=== PATIENT | male | born 1945 | race Caucasian/White ===

== ENCOUNTER 2018-08-10 01:42 | Observation (INO) ==
[2018-08-10] MEDS ORDERED: Ipratropium/Albuterol Neb 3 ML IH ONE (02:10)
[2018-08-10] MEDS ORDERED: Ondansetron 4 MG/2 ML VIAL IVP ONE (02:10)
[2018-08-10] MEDS ORDERED: *HR* FentaNYL (PF) 100 MCG/2 ML VIAL IVP ONE (02:10)
[2018-08-10 02:21] LABS: Basophils # 0.1 K/mcL (0.0-0.2); Basophils % 0.3 %; Eosinophils # 0.2 K/mcL (0.0-0.6); Eosinophils % 1.1 %; Hemoglobin 14.3 g/dL (12.9-16.9); Immature Granulocytes % 1.1 % (0-4); Lymphocytes # 1.7 K/mcL (0.6-4.6); Lymphocytes % 8.3 %; Mean Corpuscular HGB Conc 33.3 g/dL (31.6-35.5); Mean Corpuscular Hemoglobin 31.8 pg (28.0-33.3); Mean Corpuscular Volume 95.6 fL (83.0-100.0); Mean Platelet Volume 9.1 fL (9.4-12.4); Monocytes # 1.2 K/mcL (0.0-1.3); Monocytes % 5.5 %; Neutrophils # 17.5 K/mcL (1.6-8.9); Platelet Count 391 K/mcL (140-400); Red Cell Distribution Width 12.6 % (11.5-14.5); Segmented Neutrophils % 83.7 %
[2018-08-10 02:33] LABS: Prothrombin Time 11.4 Seconds (9.4-12.1)
[2018-08-10 02:48] LABS: Alanine Aminotransferase 18 Units/L (7-52); Albumin 4.2 g/dL (3.5-5.7); Albumin/Globulin Ratio 1.6 (1.1-2.2); Alkaline Phosphatase 73 Units/L (34-104); Aspartate Amino Transferase 28 Units/L (13-39); BUN/Creatinine Ratio 12 (6-26); Bilirubin,Total 0.4 mg/dL (0.3-1.0); Blood Urea Nitrogen 12 mg/dL (8-23); Calcium 8.6 mg/dL (8.6-10.3); Carbon Dioxide 23 mEq/L (23-29); Chloride 96 mEq/L (98-107); Globulin 2.7 g/dL (2.4-3.5); Glucose 138 mg/dL (70-105); Lipase 42 Units/L (11-82); Osmolality,Calculated 272 (280-300); Potassium 3.5 mEq/L (3.5-5.1); Sodium 130 mEq/L (136-145); Total Protein 6.9 g/dL (6.4-8.9); eGFR For Non-African Americans > 60 (> 60)
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
[2018-08-10] MEDS ORDERED: Isovue-370 500 ML INFUS..BTL IVP ONE (03:04)
[2018-08-10] MEDS: Isovue-370 500 ML INFUS..BTL IV ONE (03:05)
[2018-08-10 03:42] LABS: Bilirubin,Urine Negative (Negative); Blood,Urine Negative (Negative); Clarity,Urine Clear (Clear); Color,Urine Yellow (Yellow); Glucose,Urine (UA) Normal (Normal); Ketones,Urine Negative (Negative); Leukocyte Esterase,Urine Negative (Negative); Nitrite,Urine Negative (Negative); PH,Urine 6.5 pH Units (5.0-8.0); Protein,Urine 30 mg/dL (Neg-Trace); Specific Gravity,Urine 1.024 (1.010-1.025); Urobilinogen,Urine Normal (Normal)
[2018-08-10 03:45] LABS: Bacteria,Urine None Seen per hpf (None-Few); Hyaline Casts,Urine None Seen per lpf (None-Few); RBC,Urine 0-3 per hpf (0-3); Squamous Epithelial Cell,Urine Moderate per lpf (None-Few); WBC,Urine 0-3 per hpf (0-3)
[2018-08-10] MEDS ORDERED: Naloxone 0.4 MG/ML INJ IVP PRN (04:12)
[2018-08-10] MEDS ORDERED: Ketorolac 30 MG/ML VIAL IVP PRN (04:12)
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
[2018-08-10] MEDS ORDERED: *HR* FentaNYL PATCH 25 MCG PATCH TD SCH (04:30)
[2018-08-10] MEDS: OXYCODONE Oral CONC 10 MG/0.5 ML ORAL.SYG SL PRN ×4 (05:29→21:22)
[2018-08-10 05:51] LABS: Basophils % 0.2 %; Eosinophils % 0.1 %; Hematocrit 37.7 % (37.5-50.1); Immature Granulocytes % 0.7 % (0-4); Lymphocytes # 1.1 K/mcL (0.6-4.6); Lymphocytes % 5.9 %; Mean Corpuscular HGB Conc 33.7 g/dL (31.6-35.5); Mean Corpuscular Hemoglobin 31.5 pg (28.0-33.3); Mean Corpuscular Volume 93.5 fL (83.0-100.0); Mean Platelet Volume 8.9 fL (9.4-12.4); Monocytes # 1.1 K/mcL (0.0-1.3); Monocytes % 6.1 %; Neutrophils # 15.4 K/mcL (1.6-8.9); Platelet Count 315 K/mcL (140-400); Red Blood Count 4.03 M/mcL (4.19-5.50); Red Cell Distribution Width 12.5 % (11.5-14.5)
[2018-08-10 05:54] LABS: Hemoglobin 12.7 g/dL (12.9-16.9)
[2018-08-10 06:13] LABS: Chol/HDL Ratio 2.7 (0-4.9)
[2018-08-10] MEDS: 0.9 % Sodium Chloride 1,000 ML IVC SCH ×2 (06:50→16:20)
[2018-08-10] MEDS: Ipratropium/Albuterol Neb 3 ML IH SCH ×5 (07:17→23:32)
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
[2018-08-10] MEDS: *HR* Heparin 5,000 UNIT/ML VIAL SQ SCH ×3 (09:27→21:23)
[2018-08-10] MEDS: Loratadine 10 MG TABLET PO SCH (16:28)
[2018-08-10] MEDS: Lisinopril 20 MG TABLET PO SCH (16:29)
[2018-08-10] MEDS: Ketorolac 30 MG/ML VIAL IVP SCH (16:30)
[2018-08-10] MEDS: Fluticasone Propionate Nasal 50 MCG/SPRAY BOTTLE NS SCH (18:30)
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
[2018-08-11] MEDS: OXYCODONE Oral CONC 10 MG/0.5 ML ORAL.SYG SL PRN ×2 (00:24→06:20)
[2018-08-11] MEDS: Ipratropium/Albuterol Neb 3 ML IH SCH ×6 (04:05→23:24)
[2018-08-11 04:50] LABS: Basophils % 0.1 %; Eosinophils # 0.1 K/mcL (0.0-0.6); Eosinophils % 0.8 %; Hematocrit 36.8 % (37.5-50.1); Immature Granulocytes % 0.5 % (0-4); Lymphocytes # 1.3 K/mcL (0.6-4.6); Lymphocytes % 13.3 %; Mean Corpuscular HGB Conc 32.6 g/dL (31.6-35.5); Mean Corpuscular Hemoglobin 31.9 pg (28.0-33.3); Mean Corpuscular Volume 97.9 fL (83.0-100.0); Mean Platelet Volume 9.3 fL (9.4-12.4); Monocytes # 0.9 K/mcL (0.0-1.3); Monocytes % 9.6 %; Neutrophils # 7.1 K/mcL (1.6-8.9); Platelet Count 271 K/mcL (140-400); Red Blood Count 3.76 M/mcL (4.19-5.50); Segmented Neutrophils % 75.7 %
[2018-08-11 05:12] LABS: BUN/Creatinine Ratio 16 (6-26); Blood Urea Nitrogen 20 mg/dL (8-23); Calcium 8.4 mg/dL (8.6-10.3); Carbon Dioxide 26 mEq/L (23-29); Chloride 105 mEq/L (98-107); Glucose 130 mg/dL (70-105); Osmolality,Calculated 286 (280-300); Potassium 4.2 mEq/L (3.5-5.1); Sodium 136 mEq/L (136-145); eGFR For Non-African Americans 57 (> 60)
[2018-08-11] MEDS: *HR* Heparin 5,000 UNIT/ML VIAL SQ SCH ×3 (06:19→21:23)
[2018-08-11] MEDS: Ketorolac 30 MG/ML VIAL IVP SCH ×4 (08:48→21:24)
[2018-08-11] MEDS: Lisinopril 20 MG TABLET PO SCH (08:51)
[2018-08-11] MEDS: Loratadine 10 MG TABLET PO SCH (08:51)
[2018-08-11] MEDS: BuPROPion XL (24 HR) 150 MG TABLET PO SCH (08:51)
[2018-08-11] MEDS: hydroCHLOROthiazide 25 MG TABLET PO SCH (08:51)
[2018-08-11] MEDS: Aspirin Enteric Coated 81 MG Tablet PO SCH (08:51)
[2018-08-11] MEDS: Fluticasone Propionate Nasal 50 MCG/SPRAY BOTTLE NS SCH (08:52)
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
[2018-08-12] MEDS: Ipratropium/Albuterol Neb 3 ML IH SCH ×2 (03:54→07:12)
[2018-08-12] MEDS: Ketorolac 30 MG/ML VIAL IVP SCH ×2 (04:02→09:04)
[2018-08-12 05:38] LABS: Basophils % 0.3 %; Eosinophils # 0.4 K/mcL (0.0-0.6); Hematocrit 32.8 % (37.5-50.1); Hemoglobin 10.6 g/dL (12.9-16.9); Immature Granulocytes % 0.6 % (0-4); Lymphocytes # 1.4 K/mcL (0.6-4.6); Lymphocytes % 19.9 %; Mean Corpuscular HGB Conc 32.3 g/dL (31.6-35.5); Mean Corpuscular Hemoglobin 31.5 pg (28.0-33.3); Mean Corpuscular Volume 97.3 fL (83.0-100.0); Mean Platelet Volume 9.3 fL (9.4-12.4); Monocytes # 0.8 K/mcL (0.0-1.3); Monocytes % 10.6 %; Neutrophils # 4.6 K/mcL (1.6-8.9); Platelet Count 233 K/mcL (140-400); Red Blood Count 3.37 M/mcL (4.19-5.50); Segmented Neutrophils % 63.6 %
[2018-08-12 05:56] LABS: BUN/Creatinine Ratio 20 (6-26); Blood Urea Nitrogen 22 mg/dL (8-23); Calcium 8.5 mg/dL (8.6-10.3); Carbon Dioxide 27 mEq/L (23-29); Chloride 107 mEq/L (98-107); Glucose 106 mg/dL (70-105); Osmolality,Calculated 288 (280-300); Sodium 137 mEq/L (136-145); eGFR For Non-African Americans > 60 (> 60)
[2018-08-12 06:57] VITALS: BP 135/91
[2018-08-12] MEDS: *HR* Heparin 5,000 UNIT/ML VIAL SQ SCH (07:18)
[2018-08-12] MEDS: hydroCHLOROthiazide 25 MG TABLET PO SCH (09:02)
[2018-08-12] MEDS: Aspirin Enteric Coated 81 MG Tablet PO SCH (09:02)
[2018-08-12] MEDS: Loratadine 10 MG TABLET PO SCH (09:03)
[2018-08-12] MEDS: Lisinopril 20 MG TABLET PO SCH (09:03)
[2018-08-12] MEDS: BuPROPion XL (24 HR) 150 MG TABLET PO SCH (09:03)
[2018-08-12] MEDS: Fluticasone Propionate Nasal 50 MCG/SPRAY BOTTLE NS SCH (09:18)
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
--- NOTE | 2018-08-13 19:50 | Electrocardiograph Report ---
[address] [place], [place] [address] Test Date: 2018-08-10 Pat Name: Shaji Escobar Department: [id number] Room: 2A32 Gender: M [employer] Employee: : 1945 Requested By: Mary Perera Order Number: [id number] Reading MD: Renita Rodriguez Measurements Intervals [place] Rate: 71 P: 79 LA: 183 QRS: 90 QRSD: 96 T: 31 QT: 416 QTc: 453 Interpretive Statements Sinus rhythm Borderline right axis deviation Electronically Signed On 08-13-2018 19:49:03 EST by Renita Rodriguez
== END 2018-08-12 11:37 | disposition home or self-care (01) ==
LOC: 2ANU 01:42 → EMEROOARM 01:42 → SUATTDRO 04:07 → 2ANU 04:25
PROVIDERS: ADMIT Internal Medicine; ATTEND Internal Medicine